=== PATIENT | male | born 1985 | race African-American/Black ===

== ENCOUNTER 2020-03-29 02:37 | Inpatient (IN) | payer OTHER ==
[~2020-03-29] VITALS: Ht 180.3 cm; Wt 97.1 kg
--- NOTE | 2020-03-29 03:55 | PHYS DOC ---
Past Medical History Past Medical History: Anxiety, Bipolar Past Surgical History: No Surgical History Smoking Status: Current Some Day Smoker Alcohol Use: Rarely Drug Use: None General Adult EDM: Chief Complaint: SKIN PROBLEM HPI: HPI: Patient is a 34 year old male who presents for evaluation of significant redness and swelling in his left forearm and a draining abscess. Patient is currently an inmate at [facility]. Symptoms been progressing for the past 3 days. There is no history given of drug use. There is no reported fevers and chills. The swelling does involve most of the left forearm. Patient has pain to movement or palpation of the affected arm. There is no reported fever and chills Review of Systems: Review of Systems: Constitutional: Denies fever or chills. [] Eyes: Denies change in visual acuity. [] HENT: Denies nasal congestion or sore throat. [] Respiratory: Denies cough or shortness of breath. [] Cardiovascular: Denies chest pain or edema. [] GI: Denies abdominal pain, nausea, vomiting, bloody stools or diarrhea. [] : Denies dysuria. [] Musculoskeletal: Denies back pain, significant redness, pain and swelling to left forearm. [] Integument: Denies rash, 2 cm draining abscess left forearm. [] Neurologic: Denies headache, focal weakness or sensory changes. [] Endocrine: Denies polyuria or polydipsia. [] Lymphatic: Denies swollen glands. [] Psychiatric: Denies depression or anxiety. [] Heart Score: Risk Factors: Risk Factors: DM, Current or recent (<one month) smoker, HTN, HLP, family history of CAD, obesity. Risk Scores: Score 0 - 3: 2.5% MACE over next 6 weeks - Discharge Home Score 4 - 6: 20.3% MACE over next 6 weeks - Admit for Clinical Observation Score 7 - 10: 72.7% MACE over next 6 weeks - Early Invasive Strategies Current Medications: Current Medications Medications (Trade) Dose Ordered Sig/Sharonda Start Time Stop Time Status Last Admin Dose Admin Clindamycin Phosphate 50 ml @ 100 mls/hr 1X ONCE 03/29/20 03:45 03/29/20 04:14 UNV Sodium Chloride 1,000 ml @ 125 mls/hr 1X ONCE 03/29/20 03:45 03/29/20 11:44 UNV Physical Exam: PE: Constitutional: Well developed, well nourished, moderate acute distress, non- toxic appearance. [] HENT: Normocephalic, atraumatic, bilateral external ears normal, oropharynx moist, no oral exudates, nose normal. [] Eyes: PERRL, EOMI, conjunctiva normal, no discharge. [] Neck: Normal range of motion, no tenderness, supple. [] Cardiovascular:Heart rate regular rhythm, no murmur [] Lungs & Thorax: Bilateral breath sounds clear to auscultation [] Abdomen: Bowel sounds normal, soft, no tenderness, no masses, no pulsatile masses. [] Skin: Warm, dry, significant swelling and erythema to outer aspect left forearm, approximately 2 cm draining abscess left forearm. [] Back: No tenderness. [] Extremities: Moderate diffuse tenderness left forearm, no cyanosis, no clubbing, ROM intact, moderate edema. [] Neurologic: Alert and oriented, normal motor function, normal sensory function, no focal deficits noted. [] Psychologic: Affect normal, judgement normal, mood normal. [] Current Patient Data: Labs: left forearm: no fracture seen, no foreign body Vital Signs: Laboratory Tests Test 03/29/20 03:55 White Blood Count 11.0 x10^3/uL Red Blood Count 5.32 x10^6/uL Hemoglobin 15.1 g/dL Hematocrit 44.1 % Mean Corpuscular Volume 83 fL Mean Corpuscular Hemoglobin 28 pg Mean Corpuscular Hemoglobin Concent 34 g/dL Red Cell Distribution Width 14.2 % Platelet Count 247 x10^3/uL Neutrophils (%) (Auto) 62 % Lymphocytes (%) (Auto) 24 % Monocytes (%) (Auto) 13 % Eosinophils (%) (Auto) 1 % Basophils (%) (Auto) 1 % Neutrophils # (Auto) 6.8 x10^3/uL Lymphocytes # (Auto) 2.6 x10^3/uL Monocytes # (Auto) 1.4 x10^3/uL Eosinophils # (Auto) 0.1 x10^3/uL Basophils # (Auto) 0.1 x10^3/uL Sodium Level 137 mmol/L Potassium Level 3.8 mmol/L Chloride Level 100 mmol/L Carbon Dioxide Level 26 mmol/L Anion Gap 11 Blood Urea Nitrogen 15 mg/dL Creatinine 1.3 mg/dL Estimated GFR (Cockcroft-Gault) 76.9 BUN/Creatinine Ratio 12 Glucose Level 93 mg/dL Lactic Acid Level 1.0 mmol/L Calcium Level 9.2 mg/dL Total Bilirubin 1.5 mg/dL Aspartate Amino Transf (AST/SGOT) 34 U/L Alanine Aminotransferase (ALT/SGPT) 45 U/L Alkaline Phosphatase 64 U/L Total Protein 8.7 g/dL Albumin 4.2 g/dL Albumin/Globulin Ratio 0.9 Current Medications Medications (Trade) Dose Ordered Sig/Sharonda Route PRN Reason Start Time Stop Time Status Last Admin Dose Admin Sodium Chloride 1,000 ml @ 125 mls/hr 1X ONCE IV 03/29/20 04:30 03/29/20 12:29 03/29/20 04:30 Clindamycin Phosphate 50 ml @ 100 mls/hr 1X ONCE IV 03/29/20 04:30 03/29/20 04:59 DC 03/29/20 04:30 Ketorolac Tromethamine (Toradol 15mg Vial) 15 mg 1X ONCE IVP 03/29/20 04:30 03/29/20 04:31 DC 03/29/20 04:30 Lidocaine HCl 20 ml 1X ONCE IJ 03/29/20 05:00 03/29/20 05:01 03/29/20 04:51 EKG: EKG: [] Radiology/Procedures: Radiology/Procedures: [facility] [address] [place] [address] IMAGING REPORT Signed PATIENT: MITCHELL DAVIS ACCOUNT: [id number] : 1985 LOCATION: ER AGE: 34 SEX: M EXAM STATUS: REG ER ORD. PHYSICIAN: AALIYAH STOKES DO REASON: skin infection, ?foreign body PROCEDURE: FOREARM LEFT AP and lateral left forearm radiographs 03/29/2020 CLINICAL HISTORY: Infection involving the left forearm. AP and lateral digital radiographs of the left forearm were obtained. No fracture or dislocation is seen. No radiopaque foreign body is noted. There is no radiographic evidence of osteomyelitis. IMPRESSION: No radiopaque foreign body is seen. No acute osseous abnormality is noted. Electronically signed by: Richard Saini MD (03/29/2020 4:50 AM) [id number] DICTATED and SIGNED BY: RICHARD SAINI MD DATE: 03/29/20 0450 [] Course & Med Decision Making: Course & Med Decision Making Pertinent Labs and Imaging studies reviewed. (See chart for details) [] Dragon Disclaimer: Dragon Disclaimer: This electronic medical record was generated, in whole or in part, using a voice recognition dictation system. 0500 incision and drainage was performed on left forearm. Scant pus obtained. Wound cleaned and dressed. See procedure note. A lot of the fact the cellulitis involves most of the left forearm will admit to the hospital. IV antibiotics started (Clindamycin) Departure Departure Impression: Primary Impression: Cellulitis of left forearm Additional Impression: Abscess of left forearm Disposition: ADMITTED INPATIENT Admitting Physician: GUILHERME Condition: STABLE Referrals: NO PCP (PCP) Justicifation of Admission Dx: Justifications for Admission: Justification of Admission Dx: Yes Cellulitis: Cellulitis Procedure - Incision and drainage was done of the left forearm. Site was anesthetized with 5 mils lidocaine 2%. A 15 blade scalpel was used to open the wound approximately 1.5 cm. Scant purulent drainage obtained. Wound was probed and loculations broken up. The wound was relatively shallow and did not require packing at this time. Patient tolerated procedure well. Wound cleaned and dressed. Iodine used to prepare skin before incision AALIYAH STOKES DO Mar 29, 2020 03:54
[2020-03-29 04:00] LABS: BASO # 0.1 x10^3/uL (0.0-0.2); BASO % 1 % (0-3); EOS # 0.1 x10^3/uL (0.0-0.7); EOS % 1 % (0-3); HEMATOCRIT 44.1 % (39.0-53.0); HEMOGLOBIN 15.1 g/dL (13.0-17.5); LYMPH # 2.6 x10^3/uL (1.0-4.8); LYMPH % 24 % (24-48); MEAN CORPUSCULAR HEMOGLOBIN 28 pg (25-35); MEAN CORPUSCULAR HGB CONC 34 g/dL (31-37); MEAN CORPUSCULAR VOLUME 83 fL (79-100); MONO # 1.4 x10^3/uL (0.0-1.1); MONO % 13 % (0-9); NEUT # 6.8 x10^3/uL (1.8-7.7); NEUT % 62 % (31-73); PLATELET COUNT 247 x10^3/uL (140-400); RED BLOOD COUNT 5.32 x10^6/uL (4.30-5.70); RED CELL DISTRIBUTION WIDTH 14.2 % (11.5-14.5)
[2020-03-29 04:08] LABS: CALCIUM 9.2 mg/dL (8.5-10.1); CREATININE 1.3 mg/dL (0.7-1.3); GFR 76.9; POTASSIUM 3.8 mmol/L (3.5-5.1)
[2020-03-29 04:14] LABS: ALBUMIN 4.2 g/dL (3.4-5.0); ALBUMIN/GLOBULIN RATIO 0.9 (1.0-1.7); TOTAL BILIRUBIN 1.5 mg/dL (0.2-1.0); TOTAL PROTEIN 8.7 g/dL (6.4-8.2)
[2020-03-29] MEDS ORDERED: CLINDAMYCIN 600MG PREMIX 50 ML IV ONE (04:30)
[2020-03-29] MEDS ORDERED: IV NORMAL SALINE 1000ML BAG 1,000 ML IV ONE (04:30)
[2020-03-29] MEDS ORDERED: KETOROLAC 15 MG/ML VIAL. IVP ONE (04:30)
--- NOTE | 2020-03-29 04:53 | RAD ---
AP and lateral left forearm radiographs 03/29/2020 CLINICAL HISTORY: Infection involving the left forearm. AP and lateral digital radiographs of the left forearm were obtained. No fracture or dislocation is seen. No radiopaque foreign body is noted. There is no radiographic evidence of osteomyelitis. IMPRESSION: No radiopaque foreign body is seen. No acute osseous abnormality is noted. Electronically signed by: Richard Saini MD (03/29/2020 4:50 AM) [id number]
[2020-03-29] MEDS ORDERED: LIDOCAINE 2% 20 ML VIAL. IJ ONE (05:00)
[2020-03-29] MEDS ORDERED: ONDANSETRON PF 4 MG/2 ML VIAL. IV PRN (05:15)
[2020-03-29] MEDS ORDERED: MIRT15TA90 PO (05:36)
[2020-03-29] MEDS ORDERED: VENL150C PO (05:38)
[2020-03-29] MEDS ORDERED: VENL75TA PO (05:50)
[2020-03-29 06:00] VITALS: BP 147/75
[2020-03-29 07:00] VITALS: BP 117/62
--- NOTE | 2020-03-29 07:30 | NUR ---
The patient, MITCHELL DAVIS, 34 y/o, M admitted by LB MYERS MD, was given written information regarding hospital policies, unit procedures and contact persons. Valuables were checked and left with guards (pt inmate at [facility]). Admitted to room 422 with cellulitis and abscess to [facility]. VS WNL, home medications reconciled. Pt is AOx4, pleasant, independent with mobility. LS CTA, skin intact with exception of abscess, which was lanced in the ED. Wound care and ID consulted.
--- NOTE | 2020-03-29 08:33 | PDOC1 ---
History and Physical Date of Admission Date of Admission DATE: 03/29/20 TIME: 08:33 Identification/Chief Complaint Chief Complaint Presented for evaluation of significant redness and swelling in his left forearm and a draining abscess. ///inmate at [facility]. Symptoms been progressing for the past 3 days. There is no history given of recent drug use. There is no reported fevers and chills. The swelling does involve most of the left forearm. // has pain to movement or palpation of the affected arm. 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 Past Medical History Past Medical History Past Medical History Past Medical History: Anxiety, Bipolar Past Surgical History: No Surgical History Smoking Status: Current Some Day Smoker Alcohol Use: Rarely Drug Use: None fhx DEPRESSION Cardiovascular: No pertinent hx Hepatobiliary: No pertinent hx Rheumatologic: No pertinent hx Infectious disease: No pertinent hx Family History Family History: Hypertension Social History Smoke: Quit ALCOHOL: other (remote heavy use) Drugs: None, Marijuana, Other (thc in past) Current Problem List Problem List Problems Medical Problems: (1) Abscess of left forearm Status: Acute (2) Cellulitis of left forearm Status: Acute Current Medications Current Medications Current Medications Sodium Chloride 1,000 ml @ 125 mls/hr 1X ONCE IV Last administered on 03/29/20at 04:30; Start 03/29/20 at 04:30; Stop 03/29/20 at 12:29 Clindamycin Phosphate 50 ml @ 100 mls/hr 1X ONCE IV Last administered on 03/29/20at 04:30; Start 03/29/20 at 04:30; Stop 03/29/20 at 04:59; Status DC Ketorolac Tromethamine (Toradol 15mg Vial) 15 mg 1X ONCE IVP Last administered on 03/29/20at 04:30; Start 03/29/20 at 04:30; Stop 03/29/20 at 04:31; Status DC Lidocaine HCl 20 ml 1X ONCE IJ Last administered on 03/29/20at 04:51; Start 03/29/20 at 05:00; Stop 03/29/20 at 05:01; Status DC Ondansetron HCl (Zofran) 4 mg PRN Q8HRS PRN IV NAUSEA/VOMITING 1st choice; Start 03/29/20 at 05:15; Stop 03/30/20 at 05:14 Active Scripts Active Reported Venlafaxine Hcl 75 Mg Tablet 75 Mg PO QHS Effexor Xr (Venlafaxine Hcl) 150 Mg Cap.er.24h 1 Cap PO DAILY Mirtazapine 15 Mg Tab.rapdis 1 Tab PO QHS 30 Days Allergies Allergies: Coded Allergies: No Known Drug Allergies (Unverified , 03/29/20) ROS Review of System Review of Systems: Review of Systems: Constitutional: Denies fever or chills. [] Eyes: Denies change in visual acuity. [] HENT: Denies nasal congestion or sore throat. [] Respiratory: Denies cough or shortness of breath. [] Cardiovascular: Denies chest pain or edema. [] GI: Denies abdominal pain, nausea, vomiting, bloody stools or diarrhea. [] : Denies dysuria. [] Musculoskeletal: Denies back pain, significant redness, pain and swelling to left forearm. [] Integument: Denies rash, 2 cm draining abscess left forearm. [] Neurologic: Denies headache, focal weakness or sensory changes. [] Endocrine: Denies polyuria or polydipsia. [] Lymphatic: Denies swollen glands. [] Psychiatric: Denies depression or anxiety. [] 14 pt ros otherwise neg General: No: Chills, Night Sweats, Fatigue, Malaise, Appetite, Other HEENT: YES: Heacaches Hematological and Lymphatic: No: Bleeding Problems, Blood Clots, Blood Transfusions, Brusing, Night Sweats, Pallor, Swollen Lymph Nodes, Other Cardiovascular: No Chest Pain, No Palpitations, No Orthopnea, No Paroxysmal Noc. Dyspnea, No Edema, No Lt Headedness, No Other Gastrointestinal: No Nausea, No Vomiting, No Abdominal Pain, No Diarrhea, No Constipation, No Melena, No Hematochezia, No Other Neurological: No Behavorial Changes, No Bowel/Bladder ControlChng, No Confusion, No Dizziness, No Gait Disturbance, No Headaches, No Impaired Coord/balance, No Memory Loss, No Numbness/Tingling, No Seizures, No Speech Problems, No Tremors, No Visual Changes, No Weakness, No Other Skin: Yes Skin Lesion Changes Physical Exam Physical Exam Constitutional: Well developed, well nourished, no acute distress, non-toxic appearance. [] HENT: Normocephalic, atraumatic, bilateral external ears normal, oropharynx moist, no oral exudates, nose normal. [] Eyes: PERRL, EOMI, conjunctiva normal, no discharge. [] Neck: Normal range of motion, no tenderness, supple. [] Cardiovascular:Heart rate regular rhythm, no murmur [] Lungs & Thorax: Bilateral breath sounds clear to auscultation [] Abdomen: Bowel sounds normal, soft, no tenderness, no masses, no pulsatile masses. [] Skin: Warm, dry, significant swelling and erythema to outer aspect left forearm, approximately 2 cm draining abscess left forearm. [] Back: No tenderness. [] Extremities: Moderate diffuse tenderness left forearm, no cyanosis, no clubbing, ROM intact, moderate edema. [] Neurologic: Alert and oriented, normal motor function, normal sensory function, no focal deficits noted. [] Psychologic: Affect normal, judgment normal, mood normal. [] General: Alert, Oriented X3, Cooperative HEENT: Atraumatic, PERRLA, EOMI, Mucous membr. moist/pink Lungs: Clear to auscultation, Normal air movement Heart: RRR, no thrills, no gallops, no murmurs Breasts: Not examined Abdomen: Normal bowel sounds, Soft Rectal Exam: not examined PELVIC: Examination not indicated Extremities: No clubbing, No cyanosis Neuro: Normal speech, Cranial nerves 3-12 NL Psych/Mental Status: Mental status NL, Mood NL Vitals Vitals Vital Signs Date Time Temp Pulse Resp B/P (MAP) Pulse Ox O2 Delivery O2 Flow Rate FiO2 03/29/20 07:00 98.6 78 17 117/62 (80) 96 Room Air 98.6 Labs Labs Laboratory Tests Test 03/29/20 03:55 White Blood Count 11.0 x10^3/uL (4.0-11.0) Red Blood Count 5.32 x10^6/uL (4.30-5.70) Hemoglobin 15.1 g/dL (13.0-17.5) Hematocrit 44.1 % (39.0-53.0) Mean Corpuscular Volume 83 fL (79-100) Mean Corpuscular Hemoglobin 28 pg (25-35) Mean Corpuscular Hemoglobin Concent 34 g/dL (31-37) Red Cell Distribution Width 14.2 % (11.5-14.5) Platelet Count 247 x10^3/uL (140-400) Neutrophils (%) (Auto) 62 % (31-73) Lymphocytes (%) (Auto) 24 % (24-48) Monocytes (%) (Auto) 13 % (0-9) Eosinophils (%) (Auto) 1 % (0-3) Basophils (%) (Auto) 1 % (0-3) Neutrophils # (Auto) 6.8 x10^3/uL (1.8-7.7) Lymphocytes # (Auto) 2.6 x10^3/uL (1.0-4.8) Monocytes # (Auto) 1.4 x10^3/uL (0.0-1.1) Eosinophils # (Auto) 0.1 x10^3/uL (0.0-0.7) Basophils # (Auto) 0.1 x10^3/uL (0.0-0.2) Sodium Level 137 mmol/L (136-145) Potassium Level 3.8 mmol/L (3.5-5.1) Chloride Level 100 mmol/L (98-107) Carbon Dioxide Level 26 mmol/L (21-32) Anion Gap 11 (6-14) Blood Urea Nitrogen 15 mg/dL (8-26) Creatinine 1.3 mg/dL (0.7-1.3) Estimated GFR (Cockcroft-Gault) 76.9 BUN/Creatinine Ratio 12 (6-20) Glucose Level 93 mg/dL (70-99) Lactic Acid Level 1.0 mmol/L (0.4-2.0) Calcium Level 9.2 mg/dL (8.5-10.1) Total Bilirubin 1.5 mg/dL (0.2-1.0) Aspartate Amino Transf (AST/SGOT) 34 U/L (15-37) Alanine Aminotransferase (ALT/SGPT) 45 U/L (16-63) Alkaline Phosphatase 64 U/L (46-116) Total Protein 8.7 g/dL (6.4-8.2) Albumin 4.2 g/dL (3.4-5.0) Albumin/Globulin Ratio 0.9 (1.0-1.7) Laboratory Tests Test 03/29/20 03:55 White Blood Count 11.0 x10^3/uL (4.0-11.0) Red Blood Count 5.32 x10^6/uL (4.30-5.70) Hemoglobin 15.1 g/dL (13.0-17.5) Hematocrit 44.1 % (39.0-53.0) Mean Corpuscular Volume 83 fL (79-100) Mean Corpuscular Hemoglobin 28 pg (25-35) Mean Corpuscular Hemoglobin Concent 34 g/dL (31-37) Red Cell Distribution Width 14.2 % (11.5-14.5) Platelet Count 247 x10^3/uL (140-400) Neutrophils (%) (Auto) 62 % (31-73) Lymphocytes (%) (Auto) 24 % (24-48) Monocytes (%) (Auto) 13 % (0-9) Eosinophils (%) (Auto) 1 % (0-3) Basophils (%) (Auto) 1 % (0-3) Neutrophils # (Auto) 6.8 x10^3/uL (1.8-7.7) Lymphocytes # (Auto) 2.6 x10^3/uL (1.0-4.8) Monocytes # (Auto) 1.4 x10^3/uL (0.0-1.1) Eosinophils # (Auto) 0.1 x10^3/uL (0.0-0.7) Basophils # (Auto) 0.1 x10^3/uL (0.0-0.2) Sodium Level 137 mmol/L (136-145) Potassium Level 3.8 mmol/L (3.5-5.1) Chloride Level 100 mmol/L (98-107) Carbon Dioxide Level 26 mmol/L (21-32) Anion Gap 11 (6-14) Blood Urea Nitrogen 15 mg/dL (8-26) Creatinine 1.3 mg/dL (0.7-1.3) Estimated GFR (Cockcroft-Gault) 76.9 BUN/Creatinine Ratio 12 (6-20) Glucose Level 93 mg/dL (70-99) Lactic Acid Level 1.0 mmol/L (0.4-2.0) Calcium Level 9.2 mg/dL (8.5-10.1) Total Bilirubin 1.5 mg/dL (0.2-1.0) Aspartate Amino Transf (AST/SGOT) 34 U/L (15-37) Alanine Aminotransferase (ALT/SGPT) 45 U/L (16-63) Alkaline Phosphatase 64 U/L (46-116) Total Protein 8.7 g/dL (6.4-8.2) Albumin 4.2 g/dL (3.4-5.0) Albumin/Globulin Ratio 0.9 (1.0-1.7) Images Images EXAM: CT left forearm with IV contrast DATE: 03/29/2020 9:37 AM COMPARISON: Radiographs 03/29/2020 INDICATION: left forearm soft tissue swelling/pain TECHNIQUE: CT of the left forearm was performed after the administration of intravenous contrast PQRS compliance statement - One or more of the following individualized dose reduction techniques were utilized for this study: 1. Automated exposure control 2. Adjustment of the mA and/or kV according to patient size 3. Use of iterative reconstruction technique FINDINGS: Soft tissue swelling is seen at the dorsal aspect of the left elbow and forearm. Soft tissue defect at the medial margin possibly from puncture injury. No discrete loculated fluid collection is seen. No aggressive osseous lesion is seen. No fracture. No periosteal reaction. IMPRESSION: Diffuse soft tissue swelling at the dorsal aspect of the elbow and forearm without retained radiopaque foreign body or right/loculated fluid collection. Electronically signed by: Ivan Esparza MD (03/29/2020 10:44 AM) [id number] DICTATED and SIGNED BY: IVAN ESPARZA MD DATE: 03/29/20 1044 AP and lateral left forearm radiographs 03/29/2020 CLINICAL HISTORY: Infection involving the left forearm. AP and lateral digital radiographs of the left forearm were obtained. No fracture or dislocation is seen. No radiopaque foreign body is noted. There is no radiographic evidence of osteomyelitis. IMPRESSION: No radiopaque foreign body is seen. No acute osseous abnormality is noted. Electronically signed by: Richard Saini MD (03/29/2020 4:50 AM) [id number] DICTATED and SIGNED BY: RICHARD SAINI MD VTE Prophylaxis Ordered VTE Prophylaxis Devices: Yes VTE Pharmacological Prophylaxi: Yes Assessment/Plan Assessment/Plan Impression: Cellulitis of left forearm, complicated deep tissue involvement Diffuse soft tissue swelling at the dorsal aspect of the elbow and forearm without retained radiopaque foreign body or right/loculated fluid collection. BIPOLAR DISORDER Abscess of left forearm ADMITTED CONSULT ID IV VANCOMYCIN, cefipime DVT PROPHYLAXIS MRSA NASAL SCREEN blood cult ct arm 03/29 74 min pt exam, chart review > 50% of time spent with exam, chart review, pt care coordination Justicifation of Admission Dx: Justifications for Admission: Justification of Admission Dx: Yes Cellulitis: Cellulitis EUFEMIA STEPHEN MD Mar 29, 2020 08:33
[2020-03-29] MEDS ORDERED: cloNIDine HCL 0.1 MG TABLET PO PRN (08:45)
[2020-03-29] MEDS ORDERED: DOCUSATE SODIUM 100 MG CAPSULE. PO PRN (08:45)
[2020-03-29] MEDS ORDERED: guaiFENesin ORAL 200 MG/10 ML LIQUID. PO PRN (08:45)
[2020-03-29] MEDS ORDERED: MAG HYDROX/ALUMINUM HYD/SIMETH 30 ML ORAL.SUSP PO PRN (08:45)
[2020-03-29] MEDS ORDERED: 0.9 % SODIUM CHLORIDE 10 ML DISP.SYRIN. IV PRN (08:45)
[2020-03-29] MEDS ORDERED: ZOLPIDEM 5 MG TABLET. PO PRN (08:45)
[2020-03-29] MEDS ORDERED: SODIUM PHOSPHATES 19/7GM 133 ML ENEMA. PR PRN (08:45)
[2020-03-29] MEDS ORDERED: ALBUTEROL SULFATE 2.5 MG/3 ML NEBU. NEB PRN (08:45)
[2020-03-29] MEDS ORDERED: VANCOMYCIN 1GM IVPB FOR OMNI 250 ML IV ONE (08:45)
[2020-03-29] MEDS ORDERED: VANCOMYCIN 2 GM in IV NORMAL SALINE 500ML BAG 500 ML IV ONE (09:00)
[2020-03-29] MEDS: IV NORMAL SALINE 1000ML BAG 1,000 ML IV SCH ×2 (09:17→10:39)
--- NOTE | 2020-03-29 09:36 | PDOC ---
Infectious Disease Note Vital Sign Vital Signs Vital Signs Date Time Temp Pulse Resp B/P (MAP) Pulse Ox O2 Delivery O2 Flow Rate FiO2 03/29/20 07:00 98.6 78 17 117/62 (80) 96 Room Air 98.6 Labs Lab Laboratory Tests Test 03/29/20 03:55 White Blood Count 11.0 x10^3/uL (4.0-11.0) Red Blood Count 5.32 x10^6/uL (4.30-5.70) Hemoglobin 15.1 g/dL (13.0-17.5) Hematocrit 44.1 % (39.0-53.0) Mean Corpuscular Volume 83 fL (79-100) Mean Corpuscular Hemoglobin 28 pg (25-35) Mean Corpuscular Hemoglobin Concent 34 g/dL (31-37) Red Cell Distribution Width 14.2 % (11.5-14.5) Platelet Count 247 x10^3/uL (140-400) Neutrophils (%) (Auto) 62 % (31-73) Lymphocytes (%) (Auto) 24 % (24-48) Monocytes (%) (Auto) 13 % (0-9) Eosinophils (%) (Auto) 1 % (0-3) Basophils (%) (Auto) 1 % (0-3) Neutrophils # (Auto) 6.8 x10^3/uL (1.8-7.7) Lymphocytes # (Auto) 2.6 x10^3/uL (1.0-4.8) Monocytes # (Auto) 1.4 x10^3/uL (0.0-1.1) Eosinophils # (Auto) 0.1 x10^3/uL (0.0-0.7) Basophils # (Auto) 0.1 x10^3/uL (0.0-0.2) Sodium Level 137 mmol/L (136-145) Potassium Level 3.8 mmol/L (3.5-5.1) Chloride Level 100 mmol/L (98-107) Carbon Dioxide Level 26 mmol/L (21-32) Anion Gap 11 (6-14) Blood Urea Nitrogen 15 mg/dL (8-26) Creatinine 1.3 mg/dL (0.7-1.3) Estimated GFR (Cockcroft-Gault) 76.9 BUN/Creatinine Ratio 12 (6-20) Glucose Level 93 mg/dL (70-99) Lactic Acid Level 1.0 mmol/L (0.4-2.0) Calcium Level 9.2 mg/dL (8.5-10.1) Total Bilirubin 1.5 mg/dL (0.2-1.0) Aspartate Amino Transf (AST/SGOT) 34 U/L (15-37) Alanine Aminotransferase (ALT/SGPT) 45 U/L (16-63) Alkaline Phosphatase 64 U/L (46-116) Total Protein 8.7 g/dL (6.4-8.2) Albumin 4.2 g/dL (3.4-5.0) Albumin/Globulin Ratio 0.9 (1.0-1.7) Objective Assessment pt seen , consult dictated Plan Plan of Care / JAVIER VU MD Mar 29, 2020 09:36
[2020-03-29] MEDS ORDERED: CONTRAST GIVEN. MC PRN (10:00)
[2020-03-29] MEDS ORDERED: IOHEXOL 300 MG/ML 100ML VIAL. IV ONE (10:00)
[2020-03-29] MEDS: ENOXAPARIN 40 MG/0.4 ML SYRINGE. SQ SCH (10:36)
[2020-03-29] MEDS: ACETAMINOPHEN 325 MG TABLET. PO PRN (10:37)
[2020-03-29] MEDS: CEFEPIME HCL IV Push 2 GM VIAL. IVP SCH ×2 (10:37→21:49)
--- NOTE | 2020-03-29 10:47 | RAD ---
EXAM: CT left forearm with IV contrast DATE: 03/29/2020 9:37 AM COMPARISON: Radiographs 03/29/2020 INDICATION: left forearm soft tissue swelling/pain TECHNIQUE: CT of the left forearm was performed after the administration of intravenous contrast PQRS compliance statement - One or more of the following individualized dose reduction techniques were utilized for this study: 1. Automated exposure control 2. Adjustment of the mA and/or kV according to patient size 3. Use of iterative reconstruction technique FINDINGS: Soft tissue swelling is seen at the dorsal aspect of the left elbow and forearm. Soft tissue defect at the medial margin possibly from puncture injury. No discrete loculated fluid collection is seen. No aggressive osseous lesion is seen. No fracture. No periosteal reaction. IMPRESSION: Diffuse soft tissue swelling at the dorsal aspect of the elbow and forearm without retained radiopaque foreign body or right/loculated fluid collection. Electronically signed by: Ivan Moura MD (03/29/2020 10:44 AM) [id number]
[2020-03-29 11:00] VITALS: BP_SYST 145; BP_SYST 90; BP_DIAS 44; BP_DIAS 76
--- NOTE | 2020-03-29 11:42 | CONS ---
DATE OF CONSULTATION: 03/29/2020 REQUESTING PHYSICIAN: Dr. Booth. REASON FOR CONSULTATION: Forearm abscess. HISTORY OF PRESENT ILLNESS: This is a 34-year-old -[place] gentleman who is incarcerated, who came in with left forearm pain, swelling and drainage. The whole left upper extremity is swollen all the way into the upper arm. The patient is admitted with cellulitis and abscess. Cultures have been taken and he was started on vancomycin. The patient has had fever at the correctional facility. The patient denies any nausea, vomiting, diarrhea, chest pain, shortness of breath, abdominal pain, urinary symptoms or bowel symptoms. PAST MEDICAL HISTORY: Essentially unremarkable. The patient is very healthy. SOCIAL HISTORY: Negative for smoking. Occasional marijuana use in the past, remote history of drug use and alcohol use. ALLERGIES: No known drug allergies. REVIEW OF SYSTEMS: As per HPI, all other systems reviewed are negative. PHYSICAL EXAMINATION: GENERAL: Alert, oriented gentleman, not in distress. VITAL SIGNS: Stable, afebrile, temperature up to 99.1. HEENT: Both pupils are round and reacting. No conjunctival lesion. No lesion in the mouth. NECK: Supple, no JVP, no lymphadenopathy. LUNGS: Clear. HEART: S1, S2 regular. ABDOMEN: Benign. EXTREMITIES: No edema, cyanosis. SKIN: Unremarkable except left forearm, there is a skin soft tissue abscess with drainage present, but the patient has extensive induration and inflammation involving the forearm and a half or more than half of the upper arm. NEUROLOGIC: The patient is alert, awake and appropriate. No focal neurologic deficit. LABORATORY DATA: White count is 11,000. BUN and creatinine is normal. Culture is pending. Upper extremity x-ray is negative for forearm. I did order a CT, which showed diffuse soft tissue swelling of the dorsal aspect of the elbow and forearm without any loculated fluid collection. IMPRESSION: 1. Left upper extremity extensive cellulitis. 2. Left forearm abscess. 3. Low-grade fever. 4. Leukocytosis. RECOMMENDATIONS: Recommend continue vancomycin, add cefepime until the cultures are available. Supportive care and we will continue to follow. Thank you very much, Dr. Booth, for giving me the opportunity to participate in this patient's care. JAVIER VU MD DR: ANGELINA/byron JOB#: [id number] / [id number]
[2020-03-29] MEDS: VANCOMYCIN PER PHARMACY MC PRN (14:19)
--- NOTE | 2020-03-29 14:19 | NUR ---
Pharmacy Vancomycin Dosing Note S:Consulted to monitor and dose vancomycin started 03/29/20. O:MITCHELL DAVIS is a 34 year old M with Abscess Cellulitis . Height: 5 feet, 11 inches Weight: 97.298053 kg [place] Body Weight: 75.30 Adjusted Body Weight: 84.06 Dosing Weight: Actual Other Antibiotics: CEFEPIME 03/29 - LABS: Last BUN: 15 Last Creatinine: 1.3 Creatinine Clearance: 96 mL/min Last WBC: 11 Last Procalcitonin: - Tmax (past 24 hours): 99.1 Microbiology: 03/29 BCX, WOUND CX PENDING I/O: 50- Drug Levels: Last level: on at Last dose given 03/29/20 at 1030 Vancomycin Dosing: Loading Dose: 2000 mg x1 Dosing Weight: Actual Target Trough: 10-20 A: Based on: CRCL~96, WEIGHT, INFECTION TYPE (ABSCESS), P: 1. INITIATE Vancomycin 1500 mg IV q12h AFTER LOADING DOSE, 2. Follow up Trough level on 03/30/20 at 2200 3. Pharmacy will continue to monitor, follow and adjust therapy as needed. MICK MEDINA [facility], 03/29/20 [id number]
[2020-03-29 15:00] VITALS: BP 152/84
[2020-03-29] MEDS ORDERED: MULTIVITAMIN with MINERAL TABLET. PO SCH (16:00)
[2020-03-29] MEDS: ASCORBIC ACID 500 MG TABLET PO SCH (17:06)
--- NOTE | 2020-03-29 18:58 | NUR ---
Wound Care Wound Type/Assessment: Pt admitted through ED with LUE cellulitis and abscess that was opened in the ED. See detailed assessment. L arm indurated, warm and swollen from mid fore arm to mid bicep. Small amount of purulent bloody drainage from wound opening. Wound cleansed, pictured, and measured, dressing described below. Treatment Recommendations/Plan: Betadine moistened 1/4in. gauze packing strips, ABD and kerlix. Change daily. Education provided: Educations regarding turning to avoid skin breakdown, nutritional needs, and wound care. Recommended Referrals/Tests: Infectious disease consulted to manage infection. CT with contrast ordered.
[2020-03-29 19:45] VITALS: BP 132/80
[2020-03-29 22:45] VITALS: BP 151/92
[2020-03-29] MEDS: VANCOMYCIN 1.5 GM in IV NORMAL SALINE 500ML BAG 500 ML IV SCH (22:45)
[2020-03-30 03:00] VITALS: BP 144/82
[2020-03-30] MEDS: IV NORMAL SALINE 1000ML BAG 1,000 ML IV SCH (04:20)
[2020-03-30 05:14] LABS: BASO % 0 % (0-3); EOS # 0.2 x10^3/uL (0.0-0.7); EOS % 3 % (0-3); HEMATOCRIT 40.4 % (39.0-53.0); HEMOGLOBIN 13.5 g/dL (13.0-17.5); LYMPH % 32 % (24-48); MEAN CORPUSCULAR HEMOGLOBIN 28 pg (25-35); MEAN CORPUSCULAR HGB CONC 34 g/dL (31-37); MEAN CORPUSCULAR VOLUME 84 fL (79-100); MONO # 0.7 x10^3/uL (0.0-1.1); MONO % 11 % (0-9); NEUT # 3.3 x10^3/uL (1.8-7.7); NEUT % 54 % (31-73); PLATELET COUNT 208 x10^3/uL (140-400); RED BLOOD COUNT 4.83 x10^6/uL (4.30-5.70); RED CELL DISTRIBUTION WIDTH 14.2 % (11.5-14.5); WHITE BLOOD COUNT 6.2 x10^3/uL (4.0-11.0)
[2020-03-30 05:38] LABS: ALBUMIN 3.2 g/dL (3.4-5.0); ALBUMIN/GLOBULIN RATIO 0.8 (1.0-1.7); CREATININE 1.1 mg/dL (0.7-1.3); GFR 93.3; POTASSIUM 3.7 mmol/L (3.5-5.1); TOTAL BILIRUBIN 1.1 mg/dL (0.2-1.0); TOTAL PROTEIN 7.2 g/dL (6.4-8.2)
--- NOTE | 2020-03-30 06:35 | PDOC ---
PROGRESS NOTES History of Present Illness History of Present Illness VTE Prophylaxis Ordered VTE Prophylaxis Devices: Yes VTE Pharmacological Prophylaxi: Yes Assessment/Plan Assessment/Plan Impression: Cellulitis of left forearm, complicated deep tissue involvement Diffuse soft tissue swelling at the dorsal aspect of the elbow and forearm without retained radiopaque foreign body or right/loculated fluid collection. BIPOLAR DISORDER Abscess of left forearm ADMITTED CONSULT ID IV VANCOMYCIN, cefipime DVT PROPHYLAXIS MRSA NASAL SCREEN blood cult ct arm 03/29 28 min pt exam, chart review > 50% of time spent with exam, chart review, pt care coordination Justicifation of Admission Dx: Justicifation of Admission Dx: Justifications for Admission: Justification of Admission Dx: Yes Cellulitis: Cellulitis Vitals Vitals Vital Signs Date Time Temp Pulse Resp B/P (MAP) Pulse Ox O2 Delivery O2 Flow Rate FiO2 03/30/20 03:00 98.3 82 17 144/82 (102) 100 Room Air 98.3 Physical Exam General: Alert, Oriented X3, Cooperative Abdomen: Normal bowel sounds, Soft Extremities: No clubbing, No cyanosis Labs LABS EXAM: CT left forearm with IV contrast DATE: 03/29/2020 9:37 AM COMPARISON: Radiographs 03/29/2020 INDICATION: left forearm soft tissue swelling/pain TECHNIQUE: CT of the left forearm was performed after the administration of intravenous contrast PQRS compliance statement - One or more of the following individualized dose reduction techniques were utilized for this study: 1. Automated exposure control 2. Adjustment of the mA and/or kV according to patient size 3. Use of iterative reconstruction technique FINDINGS: Soft tissue swelling is seen at the dorsal aspect of the left elbow and forearm. Soft tissue defect at the medial margin possibly from puncture injury. No discrete loculated fluid collection is seen. No aggressive osseous lesion is seen. No fracture. No periosteal reaction. IMPRESSION: Diffuse soft tissue swelling at the dorsal aspect of the elbow and forearm without retained radiopaque foreign body or right/loculated fluid collection. Electronically signed by: Ivan Moura MD (03/29/2020 10:44 AM) [id number] DICTATED and SIGNED BY: IVAN MOURA MD Laboratory Tests Test 03/30/20 04:04 White Blood Count 6.2 x10^3/uL (4.0-11.0) Red Blood Count 4.83 x10^6/uL (4.30-5.70) Hemoglobin 13.5 g/dL (13.0-17.5) Hematocrit 40.4 % (39.0-53.0) Mean Corpuscular Volume 84 fL (79-100) Mean Corpuscular Hemoglobin 28 pg (25-35) Mean Corpuscular Hemoglobin Concent 34 g/dL (31-37) Red Cell Distribution Width 14.2 % (11.5-14.5) Platelet Count 208 x10^3/uL (140-400) Neutrophils (%) (Auto) 54 % (31-73) Lymphocytes (%) (Auto) 32 % (24-48) Monocytes (%) (Auto) 11 % (0-9) Eosinophils (%) (Auto) 3 % (0-3) Basophils (%) (Auto) 0 % (0-3) Neutrophils # (Auto) 3.3 x10^3/uL (1.8-7.7) Lymphocytes # (Auto) 2.0 x10^3/uL (1.0-4.8) Monocytes # (Auto) 0.7 x10^3/uL (0.0-1.1) Eosinophils # (Auto) 0.2 x10^3/uL (0.0-0.7) Basophils # (Auto) 0.0 x10^3/uL (0.0-0.2) Sodium Level 137 mmol/L (136-145) Potassium Level 3.7 mmol/L (3.5-5.1) Chloride Level 104 mmol/L (98-107) Carbon Dioxide Level 24 mmol/L (21-32) Anion Gap 9 (6-14) Blood Urea Nitrogen 10 mg/dL (8-26) Creatinine 1.1 mg/dL (0.7-1.3) Estimated GFR (Cockcroft-Gault) 93.3 BUN/Creatinine Ratio 9 (6-20) Glucose Level 118 mg/dL (70-99) Calcium Level 8.0 mg/dL (8.5-10.1) Total Bilirubin 1.1 mg/dL (0.2-1.0) Aspartate Amino Transf (AST/SGOT) 29 U/L (15-37) Alanine Aminotransferase (ALT/SGPT) 37 U/L (16-63) Alkaline Phosphatase 55 U/L (46-116) Total Protein 7.2 g/dL (6.4-8.2) Albumin 3.2 g/dL (3.4-5.0) Albumin/Globulin Ratio 0.8 (1.0-1.7) Assessment and Plan Assessmemt and Plan Problems Medical Problems: (1) Abscess of left forearm Status: Acute (2) Cellulitis of left forearm Status: Acute Comment Review of Relevant I have reviewed the following items angélica (where applicable) has been applied. Labs Laboratory Tests Test 03/29/20 03:55 03/30/20 04:04 White Blood Count 11.0 x10^3/uL (4.0-11.0) 6.2 x10^3/uL (4.0-11.0) Red Blood Count 5.32 x10^6/uL (4.30-5.70) 4.83 x10^6/uL (4.30-5.70) Hemoglobin 15.1 g/dL (13.0-17.5) 13.5 g/dL (13.0-17.5) Hematocrit 44.1 % (39.0-53.0) 40.4 % (39.0-53.0) Mean Corpuscular Volume 83 fL (79-100) 84 fL (79-100) Mean Corpuscular Hemoglobin 28 pg (25-35) 28 pg (25-35) Mean Corpuscular Hemoglobin Concent 34 g/dL (31-37) 34 g/dL (31-37) Red Cell Distribution Width 14.2 % (11.5-14.5) 14.2 % (11.5-14.5) Platelet Count 247 x10^3/uL (140-400) 208 x10^3/uL (140-400) Neutrophils (%) (Auto) 62 % (31-73) 54 % (31-73) Lymphocytes (%) (Auto) 24 % (24-48) 32 % (24-48) Monocytes (%) (Auto) 13 % (0-9) 11 % (0-9) Eosinophils (%) (Auto) 1 % (0-3) 3 % (0-3) Basophils (%) (Auto) 1 % (0-3) 0 % (0-3) Neutrophils # (Auto) 6.8 x10^3/uL (1.8-7.7) 3.3 x10^3/uL (1.8-7.7) Lymphocytes # (Auto) 2.6 x10^3/uL (1.0-4.8) 2.0 x10^3/uL (1.0-4.8) Monocytes # (Auto) 1.4 x10^3/uL (0.0-1.1) 0.7 x10^3/uL (0.0-1.1) Eosinophils # (Auto) 0.1 x10^3/uL (0.0-0.7) 0.2 x10^3/uL (0.0-0.7) Basophils # (Auto) 0.1 x10^3/uL (0.0-0.2) 0.0 x10^3/uL (0.0-0.2) Sodium Level 137 mmol/L (136-145) 137 mmol/L (136-145) Potassium Level 3.8 mmol/L (3.5-5.1) 3.7 mmol/L (3.5-5.1) Chloride Level 100 mmol/L (98-107) 104 mmol/L (98-107) Carbon Dioxide Level 26 mmol/L (21-32) 24 mmol/L (21-32) Anion Gap 11 (6-14) 9 (6-14) Blood Urea Nitrogen 15 mg/dL (8-26) 10 mg/dL (8-26) Creatinine 1.3 mg/dL (0.7-1.3) 1.1 mg/dL (0.7-1.3) Estimated GFR (Cockcroft-Gault) 76.9 93.3 BUN/Creatinine Ratio 12 (6-20) 9 (6-20) Glucose Level 93 mg/dL (70-99) 118 mg/dL (70-99) Lactic Acid Level 1.0 mmol/L (0.4-2.0) Calcium Level 9.2 mg/dL (8.5-10.1) 8.0 mg/dL (8.5-10.1) Total Bilirubin 1.5 mg/dL (0.2-1.0) 1.1 mg/dL (0.2-1.0) Aspartate Amino Transf (AST/SGOT) 34 U/L (15-37) 29 U/L (15-37) Alanine Aminotransferase (ALT/SGPT) 45 U/L (16-63) 37 U/L (16-63) Alkaline Phosphatase 64 U/L (46-116) 55 U/L (46-116) Total Protein 8.7 g/dL (6.4-8.2) 7.2 g/dL (6.4-8.2) Albumin 4.2 g/dL (3.4-5.0) 3.2 g/dL (3.4-5.0) Albumin/Globulin Ratio 0.9 (1.0-1.7) 0.8 (1.0-1.7) Laboratory Tests Test 03/30/20 04:04 White Blood Count 6.2 x10^3/uL (4.0-11.0) Red Blood Count 4.83 x10^6/uL (4.30-5.70) Hemoglobin 13.5 g/dL (13.0-17.5) Hematocrit 40.4 % (39.0-53.0) Mean Corpuscular Volume 84 fL (79-100) Mean Corpuscular Hemoglobin 28 pg (25-35) Mean Corpuscular Hemoglobin Concent 34 g/dL (31-37) Red Cell Distribution Width 14.2 % (11.5-14.5) Platelet Count 208 x10^3/uL (140-400) Neutrophils (%) (Auto) 54 % (31-73) Lymphocytes (%) (Auto) 32 % (24-48) Monocytes (%) (Auto) 11 % (0-9) Eosinophils (%) (Auto) 3 % (0-3) Basophils (%) (Auto) 0 % (0-3) Neutrophils # (Auto) 3.3 x10^3/uL (1.8-7.7) Lymphocytes # (Auto) 2.0 x10^3/uL (1.0-4.8) Monocytes # (Auto) 0.7 x10^3/uL (0.0-1.1) Eosinophils # (Auto) 0.2 x10^3/uL (0.0-0.7) Basophils # (Auto) 0.0 x10^3/uL (0.0-0.2) Sodium Level 137 mmol/L (136-145) Potassium Level 3.7 mmol/L (3.5-5.1) Chloride Level 104 mmol/L (98-107) Carbon Dioxide Level 24 mmol/L (21-32) Anion Gap 9 (6-14) Blood Urea Nitrogen 10 mg/dL (8-26) Creatinine 1.1 mg/dL (0.7-1.3) Estimated GFR (Cockcroft-Gault) 93.3 BUN/Creatinine Ratio 9 (6-20) Glucose Level 118 mg/dL (70-99) Calcium Level 8.0 mg/dL (8.5-10.1) Total Bilirubin 1.1 mg/dL (0.2-1.0) Aspartate Amino Transf (AST/SGOT) 29 U/L (15-37) Alanine Aminotransferase (ALT/SGPT) 37 U/L (16-63) Alkaline Phosphatase 55 U/L (46-116) Total Protein 7.2 g/dL (6.4-8.2) Albumin 3.2 g/dL (3.4-5.0) Albumin/Globulin Ratio 0.8 (1.0-1.7) Medications Current Medications Sodium Chloride 1,000 ml @ 125 mls/hr 1X ONCE IV Last administered on 03/29/20at 04:30; Start 03/29/20 at 04:30; Stop 03/29/20 at 12:29; Status DC Clindamycin Phosphate 50 ml @ 100 mls/hr 1X ONCE IV Last administered on 03/29/20at 04:30; Start 03/29/20 at 04:30; Stop 03/29/20 at 04:59; Status DC Ketorolac Tromethamine (Toradol 15mg Vial) 15 mg 1X ONCE IVP Last administered on 03/29/20at 04:30; Start 03/29/20 at 04:30; Stop 03/29/20 at 04:31; Status DC Lidocaine HCl 20 ml 1X ONCE IJ Last administered on 03/29/20at 04:51; Start 03/29/20 at 05:00; Stop 03/29/20 at 05:01; Status DC Ondansetron HCl (Zofran) 4 mg PRN Q8HRS PRN IV NAUSEA/VOMITING 1st choice; Start 03/29/20 at 05:15; Stop 03/30/20 at 05:14; Status DC Vancomycin HCl 250 ml @ 250 mls/hr 1X ONCE IV ; Start 03/29/20 at 08:45; Stop 03/29/20 at 09:44; Status UNV Sodium Chloride (Normal Saline Flush) 3 ml QSHIFT PRN IV AFTER MEDS AND BLOOD DRAWS; Start 03/29/20 at 08:45 Sodium Chloride 1,000 ml @ 100 mls/hr Q10H IV Last administered on 03/30/20at 04:20; Start 03/29/20 at 08:44 Zolpidem Tartrate (Ambien) 5 mg PRN QHS PRN PO INSOMNIA; Start 03/29/20 at 08:45 Acetaminophen (Tylenol) 650 mg PRN Q4HRS PRN PO TEMP OVER 100.4F OR MILD PAIN Last administered on 03/29/20at 10:37; Start 03/29/20 at 08:45 Al Hydroxide/Mg Hydroxide (Mylanta Plus Xs) 30 ml PRN DAILY PRN PO HEARTBURN / GAS; Start 03/29/20 at 08:45 Clonidine HCl (Catapres) 0.1 mg PRN Q6HRS PRN PO SBP>160 OR DBP>90; Start 03/29/20 at 08:45 Sodium Monofluorophosphate (Fleet Adult) 133 ml PRN DAILY PRN ND CONSTIPATION; Start 03/29/20 at 08:45 Docusate Sodium (Colace) 100 mg PRN BID PRN PO HARD STOOLS; Start 03/29/20 at 08:45 Albuterol Sulfate (Ventolin Neb Soln) 2.5 mg PRN Q4HRS PRN NEB SHORTNESS OF BREATH; Start 03/29/20 at 08:45 Guaifenesin (Robitussin) 200 mg PRN Q4HRS PRN PO COUGH; Start 03/29/20 at 08:45 Enoxaparin Sodium (Lovenox 40mg Syringe) 40 mg Q24H SQ Last administered on 03/29/20at 10:36; Start 03/29/20 at 09:00 Vancomycin HCl (Vanco Per Pharmacy) 1 each PRN DAILY PRN MC SEE COMMENTS Last administered on 03/29/20at 14:19; Start 03/29/20 at 08:45 Vancomycin HCl 2 gm/Sodium Chloride 500 ml @ 250 mls/hr 1X ONCE IV Last administered on 03/29/20at 10:38; Start 03/29/20 at 09:00; Stop 03/29/20 at 10:59; Status DC Cefepime HCl (Maxipime) 2 gm Q12HR IVP Last administered on 03/29/20at 21:49; Start 03/29/20 at 10:00 Iohexol (Omnipaque 300 Mg/ml) 75 ml 1X ONCE IV ; Start 03/29/20 at 10:00; Stop 03/29/20 at 10:01; Status DC Info (CONTRAST GIVEN -- Rx MONITORING) 1 each PRN DAILY PRN MC SEE COMMENTS; Start 03/29/20 at 10:00; Stop 03/31/20 at 09:59 Vancomycin HCl 1.5 gm/Sodium Chloride 500 ml @ 250 mls/hr Q12H IV Last admi nistered on 03/29/20at 22:45; Start 03/29/20 at 22:30 Vancomycin HCl (Vancomycin Trough Level) 1 each 1X ONCE MC ; Start 03/30/20 at 22:00; Stop 03/30/20 at 22:01 Ascorbic Acid (Vitamin C) 500 mg DAILY PO Last administered on 03/29/20at 17:06; Start 03/29/20 at 16:00 Multivitamins (Thera M Plus) 1 tab DAILY PO Last administered on 03/29/20at 17:05; Start 03/29/20 at 16:00 Active Scripts Active Reported Venlafaxine Hcl 75 Mg Tablet 75 Mg PO QHS Effexor Xr (Venlafaxine Hcl) 150 Mg Cap.er.24h 1 Cap PO DAILY Mirtazapine 15 Mg Tab.rapdis 1 Tab PO QHS 30 Days Vitals/I & O Vital Sign - Last 24 Hours 03/29/20 03/29/20 03/29/20 03/29/20 07:00 08:00 11:00 15:00 Temp 98.6 98.5 98.5 98.6 98.5 98.5 Pulse 78 69 52 Resp 17 18 18 B/P (MAP) 117/62 (80) 145/76 (99) 152/84 (106) Pulse Ox 96 97 98 O2 Delivery Room Air Room Air Room Air Room Air 03/29/20 03/29/20 03/29/20 03/30/20 19:45 20:05 22:45 03:00 Temp 98.3 98.4 98.3 98.3 98.4 98.3 Pulse 71 71 82 Resp 16 18 17 B/P (MAP) 132/80 (97) 151/92 (111) 144/82 (102) Pulse Ox 97 100 100 O2 Delivery Room Air Room Air Room Air Room Air Intake and Output 03/29/20 03/29/20 03/30/20 15:00 23:00 07:00 Intake Total 480 ml 2880 ml Balance 480 ml 2880 ml Justicifation of Admission Dx: Justifications for Admission: Justification of Admission Dx: Yes Cellulitis: Cellulitis EUFEMIA STEPHEN MD Mar 30, 2020 06:35
[2020-03-30 07:29] VITALS: BP 152/82
[2020-03-30] MEDS: CEFEPIME HCL IV Push 2 GM VIAL. IVP SCH ×2 (09:00→22:05)
--- NOTE | 2020-03-30 09:21 | PDOC ---
Infectious Disease Note Subjective Subjective pt is feeling better ROS ROS no n/v/d/sob Vital Sign Vital Signs Vital Signs Date Time Temp Pulse Resp B/P (MAP) Pulse Ox O2 Delivery O2 Flow Rate FiO2 03/30/20 07:29 98.5 62 16 152/82 (105) 99 Room Air 98.5 Physical Exam PHYSICAL EXAM GENERAL: Alert, oriented gentleman, not in distress. VITAL SIGNS: Stable, afebrile, HEENT: Both pupils are round and reacting. No conjunctival lesion. No lesion in the mouth. NECK: Supple, no JVP, no lymphadenopathy. LUNGS: Clear. HEART: S1, S2 regular. ABDOMEN: Benign. EXTREMITIES: No edema, cyanosis. SKIN: Unremarkable except left forearm, there is a skin soft tissue abscess with drainage present, but the patient has extensive induration and inflammation involving the forearm and a half or more than half of the upper arm.,, has improved NEUROLOGIC: The patient is alert, awake and appropriate. No focal neurologic deficit. Labs Lab Laboratory Tests Test 03/30/20 04:04 White Blood Count 6.2 x10^3/uL (4.0-11.0) Red Blood Count 4.83 x10^6/uL (4.30-5.70) Hemoglobin 13.5 g/dL (13.0-17.5) Hematocrit 40.4 % (39.0-53.0) Mean Corpuscular Volume 84 fL (79-100) Mean Corpuscular Hemoglobin 28 pg (25-35) Mean Corpuscular Hemoglobin Concent 34 g/dL (31-37) Red Cell Distribution Width 14.2 % (11.5-14.5) Platelet Count 208 x10^3/uL (140-400) Neutrophils (%) (Auto) 54 % (31-73) Lymphocytes (%) (Auto) 32 % (24-48) Monocytes (%) (Auto) 11 % (0-9) Eosinophils (%) (Auto) 3 % (0-3) Basophils (%) (Auto) 0 % (0-3) Neutrophils # (Auto) 3.3 x10^3/uL (1.8-7.7) Lymphocytes # (Auto) 2.0 x10^3/uL (1.0-4.8) Monocytes # (Auto) 0.7 x10^3/uL (0.0-1.1) Eosinophils # (Auto) 0.2 x10^3/uL (0.0-0.7) Basophils # (Auto) 0.0 x10^3/uL (0.0-0.2) Sodium Level 137 mmol/L (136-145) Potassium Level 3.7 mmol/L (3.5-5.1) Chloride Level 104 mmol/L (98-107) Carbon Dioxide Level 24 mmol/L (21-32) Anion Gap 9 (6-14) Blood Urea Nitrogen 10 mg/dL (8-26) Creatinine 1.1 mg/dL (0.7-1.3) Estimated GFR (Cockcroft-Gault) 93.3 BUN/Creatinine Ratio 9 (6-20) Glucose Level 118 mg/dL (70-99) Calcium Level 8.0 mg/dL (8.5-10.1) Total Bilirubin 1.1 mg/dL (0.2-1.0) Aspartate Amino Transf (AST/SGOT) 29 U/L (15-37) Alanine Aminotransferase (ALT/SGPT) 37 U/L (16-63) Alkaline Phosphatase 55 U/L (46-116) Total Protein 7.2 g/dL (6.4-8.2) Albumin 3.2 g/dL (3.4-5.0) Albumin/Globulin Ratio 0.8 (1.0-1.7) Micro Microbiology 03/29/20 Blood Culture - Preliminary, Resulted NO GROWTH AFTER 1 DAY Objective Assessment IMPRESSION: 1. Left upper extremity extensive cellulitis. 2. Left forearm abscess. 3. Low-grade fever. 4. Leukocytosis. Plan Plan of Care /RECOMMENDATIONS: Recommend continue vancomycin, cefepime until the cultures are available. Supportive care and we will continue to follow. JAVIER VU MD Mar 30, 2020 09:21
[2020-03-30 11:00] VITALS: BP 149/63
[2020-03-30] MEDS: ASCORBIC ACID 500 MG TABLET PO SCH (11:34)
[2020-03-30] MEDS: MULTIVITAMINS,THERAPEUTIC 5 ML ORAL LIQUID. PO SCH (11:34)
[2020-03-30] MEDS: VANCOMYCIN 1.5 GM in IV NORMAL SALINE 500ML BAG 500 ML IV SCH ×2 (11:34→23:50)
[2020-03-30] MEDS: ENOXAPARIN 40 MG/0.4 ML SYRINGE. SQ SCH (11:36)
[2020-03-30 15:13] VITALS: BP 145/64
[2020-03-30] MEDS: VANCOMYCIN PER PHARMACY MC PRN (16:21)
[2020-03-30 19:00] VITALS: BP 142/60
[2020-03-30] MEDS: LACTOBACILLUS RHAMNOSUS GG 1 CAPSULE. PO SCH (22:05)
[2020-03-30 23:00] VITALS: BP 129/85
[2020-03-30 23:38] LABS: VANC TR 6.5 mcg/mL (10.0-20.0)
[2020-03-31] MEDS: VANCOMYCIN PER PHARMACY MC PRN ×2 (02:34→12:24)
--- NOTE | 2020-03-31 02:34 | NUR ---
Pharmacy Vancomycin Dosing Note S:Consulted to monitor and dose vancomycin started 03/29/20. O:MITCHELL DAVIS is a 34 year old M with Abscess Cellulitis . Height: 5 feet, 11 inches Weight: 97.370206 kg [place] Body Weight: 75.30 Adjusted Body Weight: 84.06 Dosing Weight: Actual Other Antibiotics: CEFEPIME 03/29 - LABS: Last BUN: 10 Last Creatinine: 1.1 Creatinine Clearance: 114 mL/min Last WBC: 6.5 Last Procalcitonin: - Tmax (past 24 hours): 98.5 Microbiology: 03/29 BCX, WOUND CX PENDING I/O: 3360/- Drug Levels: Last Trough level: 6.5 on 03/30/20 at 2300 Last dose given 03/29/20 at 1030 Vancomycin Dosing: Loading Dose: 2000 mg x1 Dosing Weight: Actual Target Trough: 10-20 A: Based on: TROUGH P: 1. Begin Vancomycin 1500 mg IV q8h 2. Follow up Trough level on 04/01/20 at 0730 3. Pharmacy will continue to monitor, follow and adjust therapy as needed. KANWAL CHAUHAN RPH, 03/31/20 0234 Signed: 03/31/20 at 0235 by KANWAL CHAUHAN RPH PHA
[2020-03-31 03:00] VITALS: BP 123/59
[2020-03-31 07:00] VITALS: BP 124/60
[2020-03-31 08:42] LABS: GFR 104.1
[2020-03-31] MEDS: CEFEPIME HCL IV Push 2 GM VIAL. IVP SCH (10:07)
[2020-03-31] MEDS: VANCOMYCIN 1.5 GM in IV NORMAL SALINE 500ML BAG 500 ML IV SCH ×2 (10:07→15:37)
[2020-03-31] MEDS: LACTOBACILLUS RHAMNOSUS GG 1 CAPSULE. PO SCH (10:08)
[2020-03-31] MEDS: ASCORBIC ACID 500 MG TABLET PO SCH (10:08)
[2020-03-31] MEDS: MULTIVITAMINS,THERAPEUTIC 5 ML ORAL LIQUID. PO SCH (10:08)
[2020-03-31] MEDS: ENOXAPARIN 40 MG/0.4 ML SYRINGE. SQ SCH (10:08)
--- NOTE | 2020-03-31 10:37 | PDOC ---
Infectious Disease Note Subjective Subjective LUE swelling Pain level improved Denies fever/chillls/N/V/D ROS ROS as mentioned above Vital Sign Vital Signs Vital Signs Date Time Temp Pulse Resp B/P (MAP) Pulse Ox O2 Delivery O2 Flow Rate FiO2 03/31/20 07:00 97.8 63 16 124/60 (81) 100 Room Air 97.8 Physical Exam PHYSICAL EXAM GENERAL: Sleeping, arouses to name HEENT: Oral cavity clear NECK: Supple, no JVP, no lymphadenopathy. LUNGS: Clear. HEART: S1, S2 regular. ABDOMEN: Soft and nontender EXTREMITIES: No edema, cyanosis. LUE edema, mild. Dressing dry/intact SKIN: warm to touch. NEUROLOGIC: Appropriate Labs Lab Laboratory Tests Test 03/30/20 23:20 03/31/20 07:35 Vancomycin Level Trough 6.5 mcg/mL (10.0-20.0) Vancomycin Last Dose Date 03/30/20 Vancomycin Last Dose Time 1030 Creatinine 1.0 mg/dL (0.7-1.3) Estimated GFR (Cockcroft-Gault) 104.1 Micro Microbiology 03/29/20 Blood Culture - Preliminary, Resulted NO GROWTH AFTER 2 DAYS GRAM STAIN Final Final NO ORGANISMS SEEN. SQUAMOUS EPI CELL:FEW PMN (WBCs):NONE SEEN ANAEROBIC-AEROBIC CULTURE PENDING Objective Assessment Left upper extremity extensive cellulitis. Left forearm abscess, + drainage. no org on gram stain. Low-grade fever. Leukocytosis - improved Plan Plan of Care Vancomycin per pharmacy protocol. Trough 6.5 Continue Cefepime Local wound care as directed f/u cultures Supportive care Attending Co-Sign The patient was seen and interviewed as well as examined at the bedside. The chart was reviewed. The case was discussed. Agree with the plan of care. STEFANO DUARTE APRN Mar 31, 2020 10:37 JAVIER VU MD Mar 31, 2020 13:23
[2020-03-31 11:00] VITALS: BP 121/62
--- NOTE | 2020-03-31 12:04 | PDOC ---
PROGRESS NOTES History of Present Illness History of Present Illness VTE Prophylaxis Ordered VTE Prophylaxis Devices: Yes VTE Pharmacological Prophylaxi: Yes DISCHARGE DX Assessment/Plan Impression: Cellulitis of left forearm, complicated deep tissue involvement Diffuse soft tissue swelling at the dorsal aspect of the elbow and forearm without retained radiopaque foreign body or right/loculated fluid collection. BIPOLAR DISORDER Abscess of left forearm ADMITTED CONSULT ID IV VANCOMYCIN, cefipime DVT PROPHYLAXIS MRSA NASAL SCREEN blood cult ct arm 03/29 POSSIBLE D/C 03/31 ORAL ANTIBIOTICS D/W DR VU IN ROOM 28 min pt exam, chart review > 50% of time spent with exam, chart review, pt care coordination Justicifation of Admission Dx: Justicifation of Admission Dx: Justifications for Admission: Justification of Admission Dx: Yes Cellulitis: Cellulitis Vitals Vitals Vital Signs Date Time Temp Pulse Resp B/P (MAP) Pulse Ox O2 Delivery O2 Flow Rate FiO2 03/31/20 11:00 98.3 65 18 121/62 (81) 98 Room Air 98.3 Physical Exam Physical Exam GENERAL: Sleeping, arouses to name HEENT: Oral cavity clear NECK: Supple, no JVP, no lymphadenopathy. LUNGS: Clear. HEART: S1, S2 regular. ABDOMEN: Soft and nontender EXTREMITIES: No edema, cyanosis. LUE edema, mild. Dressing dry/intact SKIN: warm to touch. NEUROLOGIC: Appropriate General: Alert, Oriented X3, Cooperative, No acute distress Heart: Regular rate, Normal S1 Abdomen: Normal bowel sounds, Soft Extremities: No clubbing, No cyanosis Labs LABS SPEC #: [id number] SHERRI: 03/29/20 STATUS: RES REQ #: [id number] RECD: 03/29/[address]: EUFEMIA STEPHEN MD SOURCE: BLOOD ENTR: 03/29/20 [facility] DR: JAVIER VU MD [facility]: NO PCP LB MYERS MD ORDERED: BCULT Procedure Result BLOOD CULTURE Preliminary NO GROWTH AFTER 2 DAYS Laboratory Tests Test 03/30/20 23:20 03/31/20 07:35 Vancomycin Level Trough 6.5 mcg/mL (10.0-20.0) Vancomycin Last Dose Date 03/30/20 Vancomycin Last Dose Time 1030 Creatinine 1.0 mg/dL (0.7-1.3) Estimated GFR (Cockcroft-Gault) 104.1 Assessment and Plan Assessmemt and Plan Problems Medical Problems: (1) Abscess of left forearm Status: Acute (2) Cellulitis of left forearm Status: Acute Comment Review of Relevant I have reviewed the following items angélica (where applicable) has been applied. Labs Laboratory Tests Test 03/30/20 04:04 03/30/20 23:20 03/31/20 07:35 White Blood Count 6.2 x10^3/uL (4.0-11.0) Red Blood Count 4.83 x10^6/uL (4.30-5.70) Hemoglobin 13.5 g/dL (13.0-17.5) Hematocrit 40.4 % (39.0-53.0) Mean Corpuscular Volume 84 fL (79-100) Mean Corpuscular Hemoglobin 28 pg (25-35) Mean Corpuscular Hemoglobin Concent 34 g/dL (31-37) Red Cell Distribution Width 14.2 % (11.5-14.5) Platelet Count 208 x10^3/uL (140-400) Neutrophils (%) (Auto) 54 % (31-73) Lymphocytes (%) (Auto) 32 % (24-48) Monocytes (%) (Auto) 11 % (0-9) Eosinophils (%) (Auto) 3 % (0-3) Basophils (%) (Auto) 0 % (0-3) Neutrophils # (Auto) 3.3 x10^3/uL (1.8-7.7) Lymphocytes # (Auto) 2.0 x10^3/uL (1.0-4.8) Monocytes # (Auto) 0.7 x10^3/uL (0.0-1.1) Eosinophils # (Auto) 0.2 x10^3/uL (0.0-0.7) Basophils # (Auto) 0.0 x10^3/uL (0.0-0.2) Sodium Level 137 mmol/L (136-145) Potassium Level 3.7 mmol/L (3.5-5.1) Chloride Level 104 mmol/L (98-107) Carbon Dioxide Level 24 mmol/L (21-32) Anion Gap 9 (6-14) Blood Urea Nitrogen 10 mg/dL (8-26) Creatinine 1.1 mg/dL (0.7-1.3) 1.0 mg/dL (0.7-1.3) Estimated GFR (Cockcroft-Gault) 93.3 104.1 BUN/Creatinine Ratio 9 (6-20) Glucose Level 118 mg/dL (70-99) Calcium Level 8.0 mg/dL (8.5-10.1) Total Bilirubin 1.1 mg/dL (0.2-1.0) Aspartate Amino Transf (AST/SGOT) 29 U/L (15-37) Alanine Aminotransferase (ALT/SGPT) 37 U/L (16-63) Alkaline Phosphatase 55 U/L (46-116) Total Protein 7.2 g/dL (6.4-8.2) Albumin 3.2 g/dL (3.4-5.0) Albumin/Globulin Ratio 0.8 (1.0-1.7) Vancomycin Level Trough 6.5 mcg/mL (10.0-20.0) Vancomycin Last Dose Date 03/30/20 Vancomycin Last Dose Time 1030 Laboratory Tests Test 03/30/20 23:20 03/31/20 07:35 Vancomycin Level Trough 6.5 mcg/mL (10.0-20.0) Vancomycin Last Dose Date 03/30/20 Vancomycin Last Dose Time 1030 Creatinine 1.0 mg/dL (0.7-1.3) Estimated GFR (Cockcroft-Gault) 104.1 Microbiology 03/29/20 Blood Culture - Preliminary, Resulted NO GROWTH AFTER 2 DAYS 03/29/20 Gram Stain - Final, Resulted 03/29/20 Aerobic and Anaerobic Culture, Resulted Pending Medications Current Medications Sodium Chloride 1,000 ml @ 125 mls/hr 1X ONCE IV Last administered on 03/29/20at 04:30; Start 03/29/20 at 04:30; Stop 03/29/20 at 12:29; Status DC Clindamycin Phosphate 50 ml @ 100 mls/hr 1X ONCE IV Last administered on 03/29/20at 04:30; Start 03/29/20 at 04:30; Stop 03/29/20 at 04:59; Status DC Ketorolac Tromethamine (Toradol 15mg Vial) 15 mg 1X ONCE IVP Last administered on 03/29/20at 04:30; Start 03/29/20 at 04:30; Stop 03/29/20 at 04:31; Status DC Lidocaine HCl 20 ml 1X ONCE IJ Last administered on 03/29/20at 04:51; Start 03/29/20 at 05:00; Stop 03/29/20 at 05:01; Status DC Ondansetron HCl (Zofran) 4 mg PRN Q8HRS PRN IV NAUSEA/VOMITING 1st choice; Start 03/29/20 at 05:15; Stop 03/30/20 at 05:14; Status DC Vancomycin HCl 250 ml @ 250 mls/hr 1X ONCE IV ; Start 03/29/20 at 08:45; Stop 03/29/20 at 09:44; Status UNV Sodium Chloride (Normal Saline Flush) 3 ml QSHIFT PRN IV AFTER MEDS AND BLOOD DRAWS; Start 03/29/20 at 08:45 Sodium Chloride 1,000 ml @ 100 mls/hr Q10H IV Last administered on 03/30/20at 04:20; Start 03/29/20 at 08:44; Stop 03/30/20 at 11:07; Status DC Zolpidem Tartrate (Ambien) 5 mg PRN QHS PRN PO INSOMNIA; Start 03/29/20 at 08:45 Acetaminophen (Tylenol) 650 mg PRN Q4HRS PRN PO TEMP OVER 100.4F OR MILD PAIN Last administered on 03/29/20at 10:37; Start 03/29/20 at 08:45 Al Hydroxide/Mg Hydroxide (Mylanta Plus Xs) 30 ml PRN DAILY PRN PO HEARTBURN / GAS; Start 03/29/20 at 08:45 Clonidine HCl (Catapres) 0.1 mg PRN Q6HRS PRN PO SBP>160 OR DBP>90; Start 03/29/20 at 08:45 Sodium Monofluorophosphate (Fleet Adult) 133 ml PRN DAILY PRN [place] CONSTIPATION; Start 03/29/20 at 08:45 Docusate Sodium (Colace) 100 mg PRN BID PRN PO HARD STOOLS; Start 03/29/20 at 08:45 Albuterol Sulfate (Ventolin Neb Soln) 2.5 mg PRN Q4HRS PRN NEB SHORTNESS OF BREATH; Start 03/29/20 at 08:45 Guaifenesin (Robitussin) 200 mg PRN Q4HRS PRN PO COUGH; Start 03/29/20 at 08:45 Enoxaparin Sodium (Lovenox 40mg Syringe) 40 mg Q24H SQ Last administered on 03/31/20at 10:08; Start 03/29/20 at 09:00 Vancomycin HCl (Vanco Per Pharmacy) 1 each PRN DAILY PRN MC SEE COMMENTS Last administered on 03/31/20at 02:34; Start 03/29/20 at 08:45 Vancomycin HCl 2 gm/Sodium Chloride 500 ml @ 250 mls/hr 1X ONCE IV Last administered on 03/29/20at 10:38; Start 03/29/20 at 09:00; Stop 03/29/20 at 10:59; Status DC Cefepime HCl (Maxipime) 2 gm Q12HR IVP Last administered on 03/31/20at 10:07; Start 03/29/20 at 10:00 Iohexol (Omnipaque 300 Mg/ml) 75 ml 1X ONCE IV ; Start 03/29/20 at 10:00; Stop 03/29/20 at 10:01; Status DC Info (CONTRAST GIVEN -- Rx MONITORING) 1 each PRN DAILY PRN MC SEE COMMENTS; Start 03/29/20 at 10:00; Stop 03/31/20 at 09:59; Status DC Vancomycin HCl 1.5 gm/Sodium Chloride 500 ml @ 250 mls/hr Q12H IV Last administered on 03/30/20at 23:50; Start 03/29/20 at 22:30; Stop 03/31/20 at 02:27 ; Status DC Vancomycin HCl (Vancomycin Trough Level) 1 each 1X ONCE MC Last administered on 03/30/20at 22:00; Start 03/30/20 at 22:00; Stop 03/30/20 at 22:01; Status DC Ascorbic Acid (Vitamin C) 500 mg DAILY PO Last administered on 03/31/20at 10:08; Start 03/29/20 at 16:00 Multivitamins (Thera M Plus) 1 tab DAILY PO Last administered on 03/29/20at 17:05; Start 03/29/20 at 16:00; Stop 03/30/20 at 08:53; Status DC Multivitamins/ Minerals Therapeutic (Centrum Multivit-Mineral Liq) 5 ml DAILY PO Last administered on 03/31/20at 10:08; Start 03/30/20 at 09:00 Lactobacillus Rhamnosus (Culturelle) 1 cap BID PO Last administered on 03/31at 10:08; Start 03/30/20 at 21:00 Vancomycin HCl 1.5 gm/Sodium Chloride 500 ml @ 250 mls/hr Q8H IV Last administered on 03/31/20at 10:07; Start 03/31/20 at 08:00 Vancomycin HCl (Vancomycin Trough Level) 1 each 1X ONCE MC ; Start 04/01/20 at 07:30; Stop 04/01/20 at 07:31 Active Scripts Active Reported Venlafaxine Hcl 75 Mg Tablet 75 Mg PO QHS Effexor Xr (Venlafaxine Hcl) 150 Mg Cap.er.24h 1 Cap PO DAILY Mirtazapine 15 Mg Tab.rapdis 1 Tab PO QHS 30 Days Vitals/I & O Vital Sign - Last 24 Hours 03/30/20 03/30/20 03/30/20 03/30/20 15:13 19:00 19:52 23:00 Temp 98.3 98.3 98.8 98.3 98.3 98.8 Pulse 63 60 69 Resp 16 16 16 B/P (MAP) 145/64 (91) 142/60 (87) 129/85 (100) Pulse Ox 99 98 99 O2 Delivery Room Air Room Air Room Air Room Air 03/31/20 03/31/20 03/31/20 03:00 07:00 11:00 Temp 98.6 97.8 98.3 98.6 97.8 98.3 Pulse 74 63 65 Resp 16 16 18 B/P (MAP) 123/59 (80) 124/60 (81) 121/62 (81) Pulse Ox 99 100 98 O2 Delivery Room Air Room Air Room Air Intake and Output 03/30/20 03/30/20 03/31/20 15:00 23:00 07:00 Intake Total 1100 ml 1150 ml 880 ml Balance 1100 ml 1150 ml 880 ml Justicifation of Admission Dx: Justifications for Admission: Justification of Admission Dx: Yes Cellulitis: Cellulitis EUFEMIA STEPHEN MD Mar 31, 2020 12:04
[2020-03-31 15:00] VITALS: BP 134/68
[2020-03-31] MEDS ORDERED: VENLAFAXINE 50 MG TABLET. PO SCH (16:30)
--- NOTE | 2020-03-31 16:31 | PDOC3 ---
Discharge Summary Date of Admission: Mar 29, 2020 Date of Discharge: Mar 31, 2020 Follow-Up: 1-2 days Admitting Diagnosis comment: DISCHARGE DX Assessment/Plan Impression: Cellulitis of left forearm, complicated deep tissue involvement Diffuse soft tissue swelling at the dorsal aspect of the elbow and forearm without retained radiopaque foreign body or right/loculated fluid collection. BIPOLAR DISORDER Abscess of left forearm ADMITTED CONSULT ID IV VANCOMYCIN, cefipime DVT PROPHYLAXIS MRSA NASAL SCREEN blood cult ct arm 03/29 POSSIBLE D/C 03/31 ORAL ANTIBIOTICS D/W DR VU IN ROOM, po augmentin 875 mg bid x 10 days d/c planning 35 min 28 min pt exam, chart review > 50% of time spent with exam, chart review, pt care coordination Justicifation of Admission Dx: Justicifation of Admission Dx: Justifications for Admission: Justification of Admission Dx: Yes Cellulitis: Cellulitis Vitals Vitals Vital Signs Date Time Temp Pulse Resp B/P (MAP) Pulse Ox O2 Delivery O2 Flow Rate FiO2 03/31/20 11:00 98.3 65 18 121/62 (81) 98 Room Air 98.3 Physical Exam Physical Exam GENERAL: Sleeping, arouses to name HEENT: Oral cavity clear NECK: Supple, no JVP, no lymphadenopathy. LUNGS: Clear. HEART: S1, S2 regular. ABDOMEN: Soft and nontender EXTREMITIES: No edema, cyanosis. LUE edema, mild. Dressing dry/intact SKIN: warm to touch. NEUROLOGIC: Appropriate General: Alert, Oriented X3, Cooperative, No acute distress Heart: Regular rate, Normal S1 Abdomen: Normal bowel sounds, Soft Extremities: No clubbing, No cyanosis Labs LABS SPEC #: [id number] SHERRI: 03/29/20 STATUS: RES REQ #: [id number] RECD: 03/29/20 [facility] DR: EUFEMIA STEPHEN MD SOURCE: BLOOD ENTR: 03/29/20 [facility] DR: JAVIER VU MD [facility]: NO PCP LB MYERS MD ORDERED: BCULT Procedure Result FINAL DIAGNOSIS Problems Medical Problems: (1) Abscess of left forearm Status: Acute (2) Cellulitis of left forearm Status: Acute Brief Hospital Course Mr. Nuñez is a 34 old [sex] who presented with [ asbscess left arm] CONDITION AT DISCHARGE: Improved Discharge Medications Current Medications Sodium Chloride 1,000 ml @ 125 mls/hr 1X ONCE IV Last administered on 03/29/20at 04:30; Start 03/29/20 at 04:30; Stop 03/29/20 at 12:29; Status DC Clindamycin Phosphate 50 ml @ 100 mls/hr 1X ONCE IV Last administered on 03/29/20at 04:30; Start 03/29/20 at 04:30; Stop 03/29/20 at 04:59; Status DC Ketorolac Tromethamine (Toradol 15mg Vial) 15 mg 1X ONCE IVP Last administered on 03/29/20at 04:30; Start 03/29/20 at 04:30; Stop 03/29/20 at 04:31; Status DC Lidocaine HCl 20 ml 1X ONCE IJ Last administered on 03/29/20at 04:51; Start 03/29/20 at 05:00; Stop 03/29/20 at 05:01; Status DC Ondansetron HCl (Zofran) 4 mg PRN Q8HRS PRN IV NAUSEA/VOMITING 1st choice; Start 03/29/20 at 05:15; Stop 03/30/20 at 05:14; Status DC Vancomycin HCl 250 ml @ 250 mls/hr 1X ONCE IV ; Start 03/29/20 at 08:45; Stop 03/29/20 at 09:44; Status UNV Sodium Chloride (Normal Saline Flush) 3 ml QSHIFT PRN IV AFTER MEDS AND BLOOD DRAWS; Start 03/29/20 at 08:45 Sodium Chloride 1,000 ml @ 100 mls/hr Q10H IV Last administered on 03/30/20at 04:20; Start 03/29/20 at 08:44; Stop 03/30/20 at 11:07; Status DC Zolpidem Tartrate (Ambien) 5 mg PRN QHS PRN PO INSOMNIA; Start 03/29/20 at 08:45 Acetaminophen (Tylenol) 650 mg PRN Q4HRS PRN PO TEMP OVER 100.4F OR MILD PAIN Last administered on 03/29/20at 10:37; Start 03/29/20 at 08:45 Al Hydroxide/Mg Hydroxide (Mylanta Plus Xs) 30 ml PRN DAILY PRN PO HEARTBURN / GAS; Start 03/29/20 at 08:45 Clonidine HCl (Catapres) 0.1 mg PRN Q6HRS PRN PO SBP>160 OR DBP>90; Start 03/29/20 at 08:45 Sodium Monofluorophosphate (Fleet Adult) 133 ml PRN DAILY PRN IN CONSTIPATION; Start 03/29/20 at 08:45 Docusate Sodium (Colace) 100 mg PRN BID PRN PO HARD STOOLS; Start 03/29/20 at 08:45 Albuterol Sulfate (Ventolin Neb Soln) 2.5 mg PRN Q4HRS PRN NEB SHORTNESS OF BREATH; Start 03/29/20 at 08:45 Guaifenesin (Robitussin) 200 mg PRN Q4HRS PRN PO COUGH; Start 03/29/20 at 08:45 Enoxaparin Sodium (Lovenox 40mg Syringe) 40 mg Q24H SQ Last administered on 03/31/20at 10:08; Start 03/29/20 at 09:00 Vancomycin HCl (Vanco Per Pharmacy) 1 each PRN DAILY PRN MC SEE COMMENTS Last administered on 03/31/20at 12:24; Start 03/29/20 at 08:45 Vancomycin HCl 2 gm/Sodium Chloride 500 ml @ 250 mls/hr 1X ONCE IV Last administered on 03/29/20at 10:38; Start 03/29/20 at 09:00; Stop 7/16/20 at 10:59; Status DC Cefepime HCl (Maxipime) 2 gm Q12HR IVP Last administered on 03/31/20at 10:07; Start 03/29/20 at 10:00 Iohexol (Omnipaque 300 Mg/ml) 75 ml 1X ONCE IV ; Start 03/29/20 at 10:00; Stop 03/29/20 at 10:01; Status DC Info (CONTRAST GIVEN -- Rx MONITORING) 1 each PRN DAILY PRN MC SEE COMMENTS; Start 03/29/20 at 10:00; Stop 03/31/20 at 09:59; Status DC Vancomycin HCl 1.5 gm/Sodium Chloride 500 ml @ 250 mls/hr Q12H IV Last administered on 03/30/20at 23:50; Start 03/29/20 at 22:30; Stop 03/31/20 at 02:27; Status DC Vancomycin HCl (Vancomycin Trough Level) 1 each 1X ONCE MC Last administered on 03/30/20at 22:00; Start 03/30/20 at 22:00; Stop 03/30/20 at 22:01; Status DC Ascorbic Acid (Vitamin C) 500 mg DAILY PO Last administered on 03/31/20at 10:08; Start 03/29/20 at 16:00 Multivitamins (Thera M Plus) 1 tab DAILY PO Last administered on 03/29/20at 17:05; Start 03/29/20 at 16:00; Stop 03/30/20 at 08:53; Status DC Multivitamins/ Minerals Therapeutic (Centrum Multivit-Mineral Liq) 5 ml DAILY PO Last administered on 03/31/20at 10:08; Start 03/30/20 at 09:00 Lactobacillus Rhamnosus (Culturelle) 1 cap BID PO Last administered on 03/31/20at 10:08; Start 03/30/20 at 21:00 Vancomycin HCl 1.5 gm/Sodium Chloride 500 ml @ 250 mls/hr Q8H IV Last administered on 03/31/20at 15:37; Start 03/31/20 at 08:00 Vancomycin HCl (Vancomycin Trough Level) 1 each 1X ONCE MC ; Start 04/01/20 at 07:30; Stop 04/01/20 at 07:31 Venlafaxine HCl (Effexor) 75 mg QHS PO ; Start 7/18/20 at 21:00 Mirtazapine (Remeron) 15 mg QHS PO ; Start 03/31/20 at 21:00 Venlafaxine HCl (Effexor) 50 mg TID PO ; Start 03/31/20 at 16:30 Active Scripts Active Reported Venlafaxine Hcl 75 Mg Tablet 75 Mg PO QHS Effexor Xr (Venlafaxine Hcl) 150 Mg Cap.er.24h 1 Cap PO DAILY Mirtazapine 15 Mg Tab.rapdis 1 Tab PO QHS 30 Days Vital Signs Vital Signs Date Time Temp Pulse Resp B/P (MAP) Pulse Ox O2 Delivery O2 Flow Rate FiO2 03/31/20 15:00 97.9 69 16 134/68 (90) 99 Room Air 97.9 Labs Laboratory Tests Test 03/30/20 04:04 03/30/20 23:20 03/31/20 07:35 White Blood Count 6.2 x10^3/uL (4.0-11.0) Red Blood Count 4.83 x10^6/uL (4.30-5.70) Hemoglobin 13.5 g/dL (13.0-17.5) Hematocrit 40.4 % (39.0-53.0) Mean Corpuscular Volume 84 fL (79-100) Mean Corpuscular Hemoglobin 28 pg (25-35) Mean Corpuscular Hemoglobin Concent 34 g/dL (31-37) Red Cell Distribution Width 14.2 % (11.5-14.5) Platelet Count 208 x10^3/uL (140-400) Neutrophils (%) (Auto) 54 % (31-73) Lymphocytes (%) (Auto) 32 % (24-48) Monocytes (%) (Auto) 11 % (0-9) Eosinophils (%) (Auto) 3 % (0-3) Basophils (%) (Auto) 0 % (0-3) Neutrophils # (Auto) 3.3 x10^3/uL (1.8-7.7) Lymphocytes # (Auto) 2.0 x10^3/uL (1.0-4.8) Monocytes # (Auto) 0.7 x10^3/uL (0.0-1.1) Eosinophils # (Auto) 0.2 x10^3/uL (0.0-0.7) Basophils # (Auto) 0.0 x10^3/uL (0.0-0.2) Sodium Level 137 mmol/L (136-145) Potassium Level 3.7 mmol/L (3.5-5.1) Chloride Level 104 mmol/L (98-107) Carbon Dioxide Level 24 mmol/L (21-32) Anion Gap 9 (6-14) Blood Urea Nitrogen 10 mg/dL (8-26) Creatinine 1.1 mg/dL (0.7-1.3) 1.0 mg/dL (0.7-1.3) Estimated GFR (Cockcroft-Gault) 93.3 104.1 BUN/Creatinine Ratio 9 (6-20) Glucose Level 118 mg/dL (70-99) Calcium Level 8.0 mg/dL (8.5-10.1) Total Bilirubin 1.1 mg/dL (0.2-1.0) Aspartate Amino Transf (AST/SGOT) 29 U/L (15-37) Alanine Aminotransferase (ALT/SGPT) 37 U/L (16-63) Alkaline Phosphatase 55 U/L (46-116) Total Protein 7.2 g/dL (6.4-8.2) Albumin 3.2 g/dL (3.4-5.0) Albumin/Globulin Ratio 0.8 (1.0-1.7) Vancomycin Level Trough 6.5 mcg/mL (10.0-20.0) Vancomycin Last Dose Date 03/30/20 Vancomycin Last Dose Time 1030 Laboratory Tests Test 03/30/20 23:20 03/31/20 07:35 Vancomycin Level Trough 6.5 mcg/mL (10.0-20.0) Vancomycin Last Dose Date 03/30/20 Vancomycin Last Dose Time 1030 Creatinine 1.0 mg/dL (0.7-1.3) Estimated GFR (Cockcroft-Gault) 104.1 Allergies Allergies Coded Allergies Type Severity Reaction Last Updated Verified No Known Drug Allergies 03/29/20 No Disposition/Orders: Other (d/c to assisted) Justicifation of Admission Dx: Justifications for Admission: Justification of Admission Dx: Yes Cellulitis: Cellulitis EUFEMIA STEPHEN MD Mar 31, 2020 16:31
[2020-03-31] MEDS ORDERED: MULT9LIQ10 PO (16:35)
[2020-03-31] MEDS ORDERED: ASCO500T4 PO (16:35)
[2020-03-31] MEDS ORDERED: DOCU-153 PO (16:35)
[2020-03-31] MEDS ORDERED: AMOX1TAB61 PO (16:35)
[2020-03-31] MEDS ORDERED: LACT1CAP19 PO (16:35)
[2020-03-31] MEDS ORDERED: ACET325T9 PO (16:35)
--- NOTE | 2020-03-31 16:36 | SNU/HH DC ---
DISCHARGE ORDERS DISCHARGE INFORMATION: FINAL DIAGNOSIS Problems Medical Problems: (1) Abscess of left forearm Status: Acute (2) Cellulitis of left forearm Status: Acute CONDITION ON DISCHARGE: Stable CODE STATUS: Code Status: Full HALF-WAY: SNF STAY <30 DAYS: No HOSPICE: HOSPICE: No HOSPICE EVAL & TREAT: No LTAC: ADMIT TO LTAC: No POST DISCHARGE ORDERS: ACTIVITY ORDERS: Activity as tolerated DIET AFTER DISCHARGE: Regular WOUND/INCISION CARE: Keep wound elevated, Change dressing CHECKS AFTER DISCHARGE: CHECKS AFTER DISCHARGE: Check blood press - daily, Check your Temp as needed DISCHARGE MEDICATIONS: Home Meds Active Scripts Amoxicillin/Potassium Clav (AUGMENTIN 875-125 TABLET) 1 Each Tablet, 1 TAB PO BID for infection for 10 Days, #20 TAB 0 Refills Prov:EUFEMIA STEPHEN MD 03/31/20 Multivits W-Min/Ferrous Gluc (CENTRUM MULTIVIT-MINERAL LIQ) 9 Mg/15 Ml Liquid, 5 ML PO DAILY for supplement for 30 Days, #30 LIQUID Prov:EUFEMIA STEPHEN MD 03/31/20 Ascorbic Acid (VITAMIN C) 500 Mg Tablet, 500 MG PO DAILY for supplement for 30 Days, #30 TAB Prov:EUFEMIA STEPHEN MD 03/31/20 Lactobacillus Rhamnosus Gg (CULTURELLE) 1 Each Cap.sprink, 1 CAP PO BID for supplement for 30 Days, #60 CAP Prov:EUFEMIA STEPHEN MD 03/31/20 Docusate Sodium (DOK) 100 Mg Capsule, 100 MG PO PRN BID PRN for HARD STOOLS for 30 Days, #60 CAP Prov:EUFEMIA STEPHEN MD 03/31/20 Acetaminophen (TYLENOL) 325 Mg Tablet, 650 MG PO PRN Q4HRS PRN for TEMP OVER 100.4F OR MILD PAIN for 30 Days, #60 TAB Prov:EUFEMIA STEPHEN MD 03/31/20 Reported Medications Venlafaxine Hcl (VENLAFAXINE HCL) 75 Mg Tablet, 75 MG PO QHS for mood, TAB 03/29/20 Venlafaxine Hcl (EFFEXOR XR) 150 Mg Cap.er.24h, 1 CAP PO DAILY, #30 CAP 1 Refill 03/29/20 Mirtazapine (MIRTAZAPINE) 15 Mg Tab.rapdis, 1 TAB PO QHS for 30 Days, #30 TAB 0 Refills 03/29/20 EUFEMIA STEPHEN MD Mar 31, 2020 16:36
[2020-03-31] MEDS: ACETAMINOPHEN 325 MG TABLET. PO PRN (18:30)
--- NOTE | 2020-03-31 20:20 | NUR ---
Discharge Note: MITCHELL DAVIS [address] [place] [address] Discharge instructions and discharge home medications reviewed with Other facility and a copy given. All questions have been answered and understanding verbalized. The following instructions and handouts were given to guards/facility. Patient's IV removed and skin intact. Patient discharged to court/law escorted by guards and staff via wheelchair.
[2020-03-31] MEDS ORDERED: VENLAFAXINE 75 MG TABLET. PO SCH (21:00)
[2020-03-31] MEDS ORDERED: MIRTAZAPINE 15 MG TABLET PO SCH (21:00)
== END 2020-03-31 20:00 | DRG 603 ==
LOC: EEVIPCON 02:37 → ER 02:37 → 4 NORTH 05:00 → OBSVTOIN 08:44
PROVIDERS: ADMIT Internal Medicine; ATTEND Internal Medicine
PROC: 0X990ZZ Drainage of Left Upper Arm, Open Approach (ICD-10-PCS; principal; 2020-03-29)
DX: L02.414 Cutaneous abscess of left upper limb (principal); F31.9 Bipolar disorder, unspecified; F41.9 Anxiety disorder, unspecified; L03.114 Cellulitis of left upper limb; Z81.8 Family history of other mental and behavioral disorders; Z82.49 Family history of ischemic heart disease and other diseases of the circulatory system; Z87.891 Personal history of nicotine dependence
CPT/HCPCS: 10060; 36415; 73090; 73201; 80053; 80202; 82565; 83605; 85025; 87040; 87071; 87075; 96365; 96375; 99285; G0378; G0379; J0692; J1650; J1885; J3370; J3490; J7030; J7040